=== PATIENT | female | born 1970 | race Caucasian/White ===

== ENCOUNTER → 2017-10-03 | Outpatient (CLI) | payer OTHER ==
[~2017-10-03] MED LIST: ACE500 PO; BUPR-128 PO; CHOL100058 PO; IBUP-1455 PO; PREN-85 PO; VITA-347 PO
[2017-10-03 15:29] LABS: PLATELET COUNT, AUTOMATED 187 K/uL (150-450)
== END ==
LOC: LAB 15:18
PROVIDERS: ATTEND Internal Medicine Hematology
DX: E85.9 Amyloidosis, unspecified (principal)
CPT/HCPCS: 36415; 82040; 82247; 82310; 82374; 82435; 82565; 82728; 82947; 83540; 83550; 84075; 84132; 84155; 84295; 84450; 84460; 84520; 85025; 99195

== ENCOUNTER 2018-07-02 09:00 | Outpatient (RCR) | payer OTHER ==
[2018-07-02 09:06] VITALS: BP 111/74
[2018-07-02] MEDS ORDERED: INFLUENZA VIRUS VAC 0.5ML SYR IM ONLY ONE (09:50)
[2018-07-02 10:09] LABS: PLATELET COUNT, AUTOMATED 243 K/uL (150-450)
--- NOTE | 2018-07-02 11:26 | Oncology Progress Note ---
History of Present Illness Evaluation Evaluation Date: Jul 02, 2018 Evaluation Time: 09:30 Primary Care Provider Primary Care Provider: Laurel Mitchell MD Accompanied by Accompanied by: Self Last seen by : 12/12/2016 Chief Complaint Chief Complaint followup on Hereditary Hemochromatosis (HH) Oncology History Oncology History Loni Fiore is a 48-year-old female who was diagnosed with hereditary hemochromatosis a long time ago. 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 As per the patient, her last phlebotomy was about nine years ago. The patient had iron studies done recently on May 09, 2015 which showed serum iron of 179, iron saturation of 87% and ferritin level of 149. Treatment Treatment Therapeutic Phlebotomy as clinically indicated HPI HPI Mrs. 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 She presents to the cancer center for her management of HH. She is AAOX4, hemodynamically stable. She denies any cardiac type chest pain, occasional SOB the day after alcohol ingestion, no dizziness, no weight changes in the last 12 years, no headaches, no changes in bowel or bladder patterns as well as no bruising, or bleeding, no dark stools. She does report occasional hot flashes at night. We extrapolated it might be beginning signs of menopause. But overall she keeps active, watch her iron free diet intake, and she has no complains today. She informs me that sit appears that her Wellbutrin is not working as it has done in the past I instructed patient to contact primary care provider in order to look into titrating dose of Wellbutrin. Overall I had a good visit with audrey today. we talked about her compliant following scheduled appointments, she explained to me that since she does not feel sick, it is hard for her to come and get labs drawn monthly. we talked about developing a new plan for follow up where she can see her PCP [id number] and follow up with Cancer Center Q 6months, that way she has multidisciplinary team/provider follow up Q 3 months, she agrees with the plan. Of course she is encouraged to contact us and request to see a provider shall any issues or concerns arise. Significant PMHx of Depression ( Wellbutrin) migraines ( ibuprofen). Living Conditions Lives alone, shares custody of two children. Social/Occupational History Social History: Social History This is a 48 Yr old White female, she is M and has [] Children Allergies & Medications Allergies: Coded Allergies: No Known Drug Allergies (Verified , 06/01/10) Home Meds Reported Medications Cholecalciferol (Vitamin D3) (VITAMIN D) 1,000 Unit Capsule, 1000 UNIT PO DAILY, CAPSULE 08/25/15 Bupropion Hcl (WELLBUTRIN) 100 Mg Tablet, 300 MG PO QDAY, TAB 06/09/15 Ibuprofen (Ibuprofen M) 200 Mg Tablet, 200 MG PO Q8H, TAB 0 Refills TAKE OVER THE COUNTER IBUPROFEN UPTO 800 MG EVERY 8 HOURS NEEDED FOR PAIN. 11/08/10 Discontinued Reported Medications Vitamin B Complex (VITAMIN B-100 COMPLEX) 1 Each Tablet, 1 EACH PO DAILY 08/25/15 Acetaminophen (Tylenol) 500 Mg Tab, 1000 MG PO Q4-6H, TAB 0 Refills TAKE OVER THE COUNTER TYLENOL EVERY 4 TO 6 HOURS NEEDED FOR PAIN. DO NOT TAKE MORE THEN 8 TALBETS A DAY. 11/08/10 Review of Systems Constitution: Denies Appetite/Weight Change, Denies Fever/Chills/Sweating, Denies Recent Infection, Denies Other HEENT: No EARS: Tinnitus, No NOSE: Nasal Discharge, No THROAT: Sore Throat, No EYES: Dipolpia, No EARS: Hearing Problems, No NOSE: Epistaxis, No THROAT: Mouth Ulcers, No EYES: Vision Change; OTHER (migraines occassionally) Respiratory: No Cough, No Expectoration, No Hemoptysis, No Shortness of Breath, No OTHER Cardiovascular: Palpitations (upon alcohol ingestion) Gastrointestinal: No Nausea, No Vomitting, No Diarrehea, No Constipation, No Heart Burn, No Swallowing Difficulties, No Abdominal Pain, No Other Gentiourinary: No Hematuria, No Dysuria, No Nocturia, No Other Musculoskeletal: No Muscle Pain, No Joint Pain, No Bone Pain, No Other Hematological: No Bleeding, No Weakness, No Enlarged Lyph Nodes, No Bruising, No Fatigue, No Other Skin: No Skin Rash, No Lumps, No Erythema, No Dry Skin, No Moist Skin, No Other Psychiatric: Depression Vital Signs Vital Signs Temperature: 97.6 Pulse: 80 BP Systolic: 111 BP Diastolic: 74 Respiratory Rate: 16 O2 SAT: 98 O2 Delivery: Room Air Height (feet) Height (inches) 65.00 Weight lb: 123 Weight oz: 9.0 Weight Kg (Narciso): 56.05 Pain: 0 ECOG-0 Physical Exam General: Looks Stable, Well Developed, Well Nourished HEENT: No HEAD:Atraumatic, No EYES: Conjuctivitis, No EYES: Icterus, No MOUTH: Mucocitis, No MOUTH: Oral Thrush, No SINUS: Tenderness to Palpation, No Other Neck: Supple Lungs: Clear to Auscultation, Percussion Bilaterally Heart: Regular Rate and Rhythm; No Gallops, No Murmurs, No Clicks, No Rubs, No Other Abdomen: Soft and Nontender; No Hepatosplenomegaly, No Masses, No Other Extremities: No Cyanosis, No Clubbing, No Edema, No Other Lymphatics: No Peripheral Lymphadenopathy, No Other Psychiatric: Mood appears normal Skin: No Skin Rashes, No Bruising, No Purpura, No Moist Desquamation, No Dry Desquamation, No Errythema, No Mild Errythema, No Moderate Errythema, No Severe Errythema, No Induration, No Other Breast: No No Masses, No No Nipple Discharge, No No Skin Changes, No Other Assessment and Plan Assessment and Plan Mrs. 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 She presents to the cancer center for her management of HH. She is AAOX4, hemodynamically stable. She denies any cardiac type chest pain, occasional SOB the day after alcohol ingestion, no dizziness, no weight changes in the last 12 years, no headaches, no changes in bowel or bladder patterns as well as no bruising, or bleeding, no dark stools. She does report occasional hot flashes at night. We extrapolated it might be beginning signs of menopause. But overall she keeps active, watch her iron free diet intake, and she has no complains today. DIAGNOSTIC DATA Reviewed per [facility]. 1. Hereditary hemochromatosis with homozygous state for C282Y mutation. The patient received phlebotomy sessions in the past. Her last was in January of 2016. Her current iron studies and serum ferritin are pending . Because her iron saturations are above 60%, I am planning to proceed with phlebotomy at this time. I will see her in three months from now with CBC, chem panel and iron studies with ferritin. The patient is doing very well currently and totally asymptomatic. 2. Depression, on Wellbutrin. will follow up with PCP for dose adjustment 3. Migraine headaches. relieved by ibuprofen 4. Hot flashes. occasionally at night. She may use evening primrose oil, and multivitamin with Magnesium supplement. PLAN - CBC/Diff, CMP, iron studies with ferritin labs x1 now. - Patient May receive her Flu shot today 1. Therapeutic Phlebotomize 500 mL of blood. if the following parameters - Iron sat >/= 60% - Ferritin >/= 50 ng/mL - Hct >/= 35% 2. The patient to return in three -to six months with CBC, chem panel, iron studies with ferritin .given the poor compliance with follow up appointments. she reports not feeling sick and not noticing any different after Phlebotomy. I explained the rationale to prevent end organ damage, and the need for follow up. I suggested patient to make sure she sees a Medical provider at least Q3 months, meaning alternating seeing MD/VINITA here at the Cancer Center and PCP. she did agree with the plan moving forward. 3. Implement Strict Dietary and alcohol intake. Patient to avoid alcohol ingestion, red wine, limit to a maximum of 2 drinks at a time. refrain from consuming, red meats, uncooked seafood limit Vitamin C/ascorbic acid and citrus fruit intake, and iron free diet. 4. Increase hydration before and after phlebotomy. and conserve energy the day of phlebotomy. - Patient has a follow up appointment with GI, next month, for a consultation on Colonoscopy since her mother has serrated familial polyposis. - f/u appointment with MD/VINITA on 12/2018. or earlier if any issues or concern arise. - Lab drawn cbc, cmp. iron studies with ferritin on 10/03/2018. - Education, patient instructed to go to ER immediately and, or call Clinic if any Shortness of Breath, Temp >/=100.4, fevers, chills, cardiac type chest pain, bleeding, excessive bruising, headaches, blurry vision, dizziness, abdominal pain, difficulty swallowing, and pain unrelieved by medication, skin rashes, oozing wounds. TIME SPENT: 30 minutes 25 > minutes includes but not limited to discussion, counselling and co-ordination~ of care. Discussion with other health care providers, record review, review of lab work, diagnostic tests. Plan discussed extensively with patient. All the questions answered today. Thank you for the opportunity to be involved in the care of Mrs. Adebayo Ivey. Billing Level: Return visit 4 CC Copies to: SARAH CANO MD ; BROOKE AVILES-Consuelo, ONC Jul 02, 2018 11:26
== END 2018-08-05 09:39 | disposition home or self-care (01) ==
LOC: ONC 09:00
PROVIDERS: ATTEND Internal Medicine Hematology
DX: E83.110 Hereditary hemochromatosis (principal); G43.909 Migraine, unspecified, not intractable, without status migrainosus; F32.9 Major depressive disorder, single episode, unspecified; Z23 Encounter for immunization
CPT/HCPCS: 36415; 82040; 82247; 82310; 82374; 82435; 82565; 82728; 82947; 83540; 83550; 84075; 84132; 84155; 84295; 84450; 84460; 84520; 85025; 90471; 90674; 99212

== ENCOUNTER 2018-09-03 02:11 | Day surgery (SDC) | payer OTHER ==
[~2018-09-03] VITALS: Ht 165.1 cm; Wt 55.8 kg
[2018-09-03] MEDS ORDERED: PROPOFOL EMUL(*) 10MG/ML 20 ML 20 ML ONE ×3 (09:44→14:48)
[2018-09-03 13:20] VITALS: BP 130/72
[2018-09-03] MEDS ORDERED: ONDANSETRON 4 MG/2 ML VIAL IVP ONE (13:45)
[2018-09-03] MEDS ORDERED: ACETAMINOPHEN(*)1000 MG/100 ML 100 ML IVPB ONE (13:45)
[2018-09-03] MEDS ORDERED: LIDOCAINE/SOD BICARB 8.4% SYR ID ONE (13:55)
[2018-09-03] MEDS ORDERED: NORMOSOL R SOLN(*) 1000 ML BAG 1,000 ML IV PRN (13:55)
[2018-09-03 15:03] VITALS: BP 109/67
[2018-09-03 15:04] VITALS: BP 109/67
[2018-09-03 15:15] VITALS: BP 123/80
[2018-09-03 16:20] VITALS: BP 122/77
[2018-09-03 16:23] VITALS: BP 121/74
== END 2018-09-03 16:35 | disposition home or self-care (01) ==
LOC: OR 02:11
PROVIDERS: ATTEND Internal Medicine Gastroenterology
DX: Z12.11 Encounter for screening for malignant neoplasm of colon (principal); K29.70 Gastritis, unspecified, without bleeding; K64.9 Unspecified hemorrhoids; K57.30 Diverticulosis of large intestine without perforation or abscess without bleeding; Z80.0 Family history of malignant neoplasm of digestive organs
CPT/HCPCS: 00813; 43239; 45378; 81025; 88305; J0131; J2405; J2704

== ENCOUNTER 2018-12-10 10:00 | Outpatient (RCR) | payer OTHER ==
[2018-12-08 08:22] VITALS: BP 114/57
[2018-12-08 08:24] LABS: PLATELET COUNT, AUTOMATED 242 K/uL (150-450)
[2018-12-10 10:04] VITALS: BP 122/75
--- NOTE | 2018-12-10 13:47 | [facility] ONCOLOGY NOTE ---
EVENT DATE: December 10, 2018 DIAGNOSES 1. Hereditary hemochromatosis. 2. Migraine headache. 3. Depression. CHIEF COMPLAINT The patient is here today for followup of her hereditary hemochromatosis. HEMATOLOGY HISTORY Loni Fiore is a 48-year-old female who was diagnosed with hereditary hemochromatosis a long time ago. 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 As per the patient, her last phlebotomy was about nine years ago. The patient had iron studies done recently on May 09, 2015 which showed serum iron of 179, iron saturation of 87% and ferritin level of 149. HISTORY OF PRESENT ILLNESS The patient is here today for followup of her hereditary hemochromatosis. She is doing very well and she is totally asymptomatic today. PAST MEDICAL HISTORY 1. Hereditary hemochromatosis. 2. Depression. 3. Migraine headache. PAST SURGICAL HISTORY In 2002, the patient had surgery for left ankle. SOCIAL HISTORY The patient is . She has a son and daughter. 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 She has about two drinks per day. Denies any abuse of tobacco or illicit drugs. FAMILY HISTORY Not obtained. CURRENT MEDICATIONS 1. Wellbutrin 100 mg daily. 2. Vitamin D supplement. 3. Vitamin B complex. ALLERGIES No known drug allergies. REVIEW OF SYSTEMS CONSTITUTIONAL: No appetite or weight change. No fever, chills or sweating. No recent infection. HEENT: Ears: No tinnitus or hearing problem. Nose: No nasal discharge or epistaxis. Throat: No sore throat or mouth ulcers Eyes: No diplopia or visual changes. RESPIRATORY: No shortness of breath. No cough, expectoration or hemoptysis. CARDIOVASCULAR: No chest pain, orthopnea, or paroxysmal nocturnal dyspnea (PND). No edema. No palpitations. GASTROINTESTINAL: No nausea or vomiting. No diarrhea or constipation. No change in bowel movements. No heartburn or swallowing difficulties. No abdominal pain. No jaundice. No hematemesis, melena or rectal bleeding. GENITOURINARY: No hematuria or dysuria. MUSCULOSKELETAL: No pain in the muscles, joints or bones. NEUROLOGICAL: No tingling or numbness in the hands or feet. No headaches or convulsions. HEMATOLOGIC/LYMPHATIC: No bleeding or easy bruising. No weakness or fatigue. No enlarged lymph nodes. SKIN: No skin rash or lumps. PSYCHIATRIC: No anxiety or depression. PHYSICAL EXAMINATION GENERAL: Looks stable. Well-developed, well-nourished, and in no acute distress. VITAL SIGNS: Blood pressure 122/75, pulse 82 per minute, respirations 16 per minute, temperature 97, pulse ox 98% on room air. HEENT: Head: Atraumatic. No sinus tenderness to palpation. Eyes: No icterus or conjunctivitis. Mouth and throat: No oral thrush or mucositis. NECK: Supple. No cervical or supraclavicular lymphadenopathy. LUNGS: Clear to auscultation and percussion bilaterally. HEART: Regular rate and rhythm. No gallops, murmurs, clicks or rubs. ABDOMEN: Soft and lax. No tenderness. No hepatosplenomegaly. No masses. EXTREMITIES: No cyanosis, clubbing or edema. LYMPHATICS: No peripheral lymphadenopathy. NEUROLOGICAL: Conscious, alert and oriented times three. No focal motor or sensory deficits. PSYCHIATRIC: Mood and affect appear normal. SKIN: No skin rash, bruise or purpuric eruption. DIAGNOSTIC DATA CBC showed white count 3.7, hemoglobin 12.7, hematocrit 37.1, platelets 242,000. Iron studies showed serum iron 90, TIBC 247, iron saturation 56.4% and ferritin is 10. Chem panel totally normal except AST 47 and ALT 68. ASSESSMENT 1. Hereditary hemochromatosis with homozygous state for C282Y mutation. The patient received phlebotomy sessions in the past. Her last phlebotomy was in September 2018. Her current iron studies show iron saturation of 56.4% and ferritin at 10. There is no indication of phlebotomy at present. I am planning to see her again in four months with CBC, chem panel and iron studies with ferritin. 2. Depression, on Wellbutrin. 3. Migraine headaches. PLAN 1. Continue followup. 2. The patient to return in four months with CBC, chem panel, iron studies. 3. Consider phlebotomy if ferritin is more than 50 and/or iron saturation more than 60%. 4. The patient to contact us for any new concerns or complaints. [facility]lyss[facility]
== END 2019-03-04 ==
LOC: ONC 10:00
PROVIDERS: ATTEND Internal Medicine Hematology
DX: E83.110 Hereditary hemochromatosis (principal)
CPT/HCPCS: 36415; 82040; 82247; 82310; 82374; 82435; 82565; 82728; 82947; 83540; 83550; 84075; 84132; 84155; 84295; 84450; 84460; 84520; 85025; 99212